=== PATIENT | male | born 1975 | race Two or more races ===

== ENCOUNTER 2024-11-09 16:55 | Inpatient (IN) | payer BC ==
[2024-11-09 17:49] VITALS: BMI 28.1
[2024-11-09] MEDS ORDERED: NALOXONE (NARCAN) HCL 4 MG/0.1 ML SPRAY NS PRN (18:36)
[2024-11-09] MEDS ORDERED: BENZOCAINE/MENTHOL (CHLORASEPTIC ) LOZENGE MM PRN (18:36)
[2024-11-09] MEDS ORDERED: LOPERAMIDE HCL 2 MG CAPSULE PO PRN (18:36)
[2024-11-09] MEDS ORDERED: NICOTINE POLACRILEX 2 MG LOZENGE BC PRN (18:36)
[2024-11-09] MEDS ORDERED: guaiFENesin 600 MG TABLET.ER (FP) PO PRN (18:36)
[2024-11-09] MEDS ORDERED: MAGNESIUM HYDROX 2400MG/30ML ORAL SUSPENSION 30 ML CUP PO PRN (18:36)
[2024-11-09] MEDS ORDERED: NICOTINE POLACRILEX 2 MG GUM BUC PRN (18:36)
[2024-11-09] MEDS ORDERED: IBUPROFEN 400 MG TABLET (FP) PO PRN (18:36)
[2024-11-09] MEDS ORDERED: POLYETHYLENE GLYCOL (HEALTHYLAX) 3350 17 GM PACKET PO PRN (18:36)
[2024-11-09] MEDS ORDERED: BENZONATATE 200 MG CAPSULE PO PRN (18:36)
[2024-11-09] MEDS ORDERED: MELATONIN 5 MG TABLETS ONE (22:37)
[2024-11-09] MEDS ORDERED: INSULIN (NOVOLOG) ASPART 100 UNITS/ML 10ML VIAL SQ ONE (22:38)
[2024-11-09] MEDS: THIAMINE 100 MG TABLET PO SCH (22:40)
[2024-11-09] MEDS: MELATONIN 5 MG TABLETS PO SCH (22:40)
[2024-11-09] MEDS: INSULIN ASPART SLIDING SCALE (NOVOLOG) 1 VIAL SQ SCH (22:41)
[2024-11-09] MEDS ORDERED: TUBERCULIN PPD 5 TU/0.1ML VIAL ID ONE (22:59)
[2024-11-09] MEDS: TUBERCULIN PPD 5 TU/0.1ML SYRINGE (IN PATIENT USE ONLY) ID ONE (23:03)
[2024-11-10] MEDS: EMPAGLIFLOZIN (JARDIANCE) 10 MG TABLET PO SCH (06:22)
[2024-11-10] MEDS: ASPIRIN COATED 81 MG TABLET.EC PO SCH (10:13)
[2024-11-10] MEDS: PRENATAL VITAMINS W/ FOLIC ACID TABLET (FP) PO SCH (10:13)
[2024-11-10] MEDS: CYANOCOBALAMIN 1,000 MCG TABLET (FP) PO SCH (10:14)
[2024-11-10 10:33] LABS: MCHC 32.6 g/dl (32.3-36.5); MEAN CELL VOLUME 92.4 fl (79.0-92.2); MEAN PLT VOLUME 10.2 fl (9.4-12.4); RDW 13.3 % (12.2-16.1)
[2024-11-10 10:36] LABS: URINE APPEARANCE CLEAR; URINE BILIRUBIN NEGATIVE (NEGATIVE); URINE COLOR YELLOW; URINE GLUCOSE (UA) 3+ (NEGATIVE); URINE KETONE NEGATIVE (NEGATIVE); URINE LEUK ESTERASE NEGATIVE (NEGATIVE); URINE NITRITE NEGATIVE (NEGATIVE); URINE PROTEIN TRACE (NEGATIVE); URINE UROBILINOGEN 0.2 mg/dL (0.2-1.0)
[2024-11-10 10:43] LABS: GLUCOSE,RANDOM 235 mg/dL (74-106); TOT PROT 7.2 g/dl (6.4-8.2)
[2024-11-10 10:44] LABS: CO2 27 mmol/L (21-32)
[2024-11-10 10:46] LABS: ALK PHOS 115 U/L (40-150)
[2024-11-10 10:49] LABS: CREATININE 0.86 mg/dL (0.55-1.3); SGOT/AST 18 U/L (5-34); SGPT/ALT 15 U/L (0-55)
[2024-11-10] MEDS: ATORVASTATIN CA 40 MG TABLET (FP) PO SCH (21:27)
[2024-11-11] MEDS: hydrOXYzine PAMOATE 25 MG CAPSULE (FP) PO PRN (21:38)
[2024-11-12] MEDS ORDERED: INSULIN ASPART SLIDING SCALE (NOVOLOG) 1 VIAL SQ ONE ×2 (06:27→16:35)
[2024-11-12] MEDS: MAG HYDROX/AL HYDROX/SIMETH 30 ML UNIT-DOSE CUP PO PRN (11:25)
[2024-11-12] MEDS: IBUPROFEN 600 MG TABLET (FP) PO PRN (20:38)
[2024-11-13] MEDS ORDERED: INSULIN ASPART SLIDING SCALE (NOVOLOG) 1 VIAL SQ ONE (07:56)
[2024-11-13] MEDS: FAMOTIDINE 20 MG TABLET PO SCH (12:02)
[2024-11-13] MEDS: VARENICLINE TARTRATE 0.5 MG TAB PO SCH (12:57)
[2024-11-13] MEDS: AMOX TR/POT CLAV 500MG/125MG TABLETS (FP) PO SCH (16:38)
[2024-11-13] MEDS: NALTREXONE HCL 50 MG TABLET PO ONE (17:33)
[2024-11-13] MEDS: MIRTAZAPINE 15 MG TABLET (FP) PO SCH (21:25)
[2024-11-14] MEDS: NALTREXONE HCL 50 MG TABLET PO SCH (10:25)
[2024-11-14] MEDS: MELATONIN 5 MG TABLETS PO SCH (21:21)
[2024-11-15] MEDS ORDERED: INSULIN ASPART SLIDING SCALE (NOVOLOG) 1 VIAL SQ ONE ×3 (06:56→16:34)
[2024-11-16] MEDS ORDERED: INSULIN ASPART SLIDING SCALE (NOVOLOG) 1 VIAL SQ ONE (07:52)
[2024-11-17] MEDS ORDERED: VARENICLINE TARTRATE 0.5 MG TAB PO SCH (10:00)
[2024-11-17] MEDS: amLODIPine BESYLATE 5 MG TABLET (FP) PO SCH (10:46)
[2024-11-17] MEDS: GABAPENTIN 100 MG CAPSULE PO SCH (10:46)
[2024-11-17] MEDS: BENZOCAINE 20 % GEL TUBE MM PRN (14:13)
[2024-11-18] MEDS: ACETAMINOPHEN 325 MG TABLET (FP) PO PRN (04:06)
[2024-11-18] MEDS ORDERED: INSULIN ASPART SLIDING SCALE (NOVOLOG) 1 VIAL SQ ONE (06:37)
[2024-11-19] MEDS ORDERED: INSULIN ASPART SLIDING SCALE (NOVOLOG) 1 VIAL SQ ONE (12:00)
[2024-11-22] MEDS ORDERED: INSULIN ASPART SLIDING SCALE (NOVOLOG) 1 VIAL SQ ONE (06:38)
[2024-11-23 05:22] VITALS: BP 133/78; PULSE 82; RESP 16; TEMP 96.9
[2024-11-23] MEDS ORDERED: INSULIN ASPART SLIDING SCALE (NOVOLOG) 1 VIAL SQ ONE (06:09)
== END 2024-11-23 09:54 | disposition home or self-care (01) | DRG 772 ==
LOC: YASAS 16:55 → Y3W 21:27
PROVIDERS: ADMIT Psychiatry & Neurology Pain Medicine; ATTEND Psychiatry & Neurology Pain Medicine
PROC: HZ42ZZZ Group Counseling for Substance Abuse Treatment, Cognitive-Behavioral (ICD-10-PCS; principal; 2024-11-09)
DX: F10.20 Alcohol dependence, uncomplicated (principal); F14.20 Cocaine dependence, uncomplicated; F17.210 Nicotine dependence, cigarettes, uncomplicated; F32.A Depression, unspecified; I10 Essential (primary) hypertension; E78.5 Hyperlipidemia, unspecified; E11.42 Type 2 diabetes mellitus with diabetic polyneuropathy; Z79.4 Long term (current) use of insulin; K02.9 Dental caries, unspecified; Z56.0 Unemployment, unspecified; Z59.00 Homelessness unspecified
CPT/HCPCS: 36415; 80053; 80307; 81003; 82962; 85027; 86780; 93005; 93010